=== PATIENT | female | born 1985 | race Caucasian/White ===

== ENCOUNTER 2016-10-01 21:59 | Emergency (ER) | payer OTHER ==
[2016-10-01] MEDS ORDERED: NITROFURANTOIN 100 MG CAPSULE PO ONE (23:56)
--- NOTE | 2016-10-02 | ED Physician Documentation ---
General Adult - HISTORIAN Historian: patient, spouse - HPI Stated Complaint: vaginal discharge Chief Complaint: General Adult Additional Information: 4 days vulvar itching and vag discharge. Has used monistat two days w/o relief. Denies dysuria, frequency. 36-37 weeks , . Has OB appointment on . Recent diagnosis BV in June. Has had UTI's in the past as well. No vag bleeding. Occasional uterine contraction. - ROS CONST: denies: fever GI/: denies: problems urinating - PAST HX Past History: none Allergies/Adverse Reactions: Allergies Allergy/AdvReac Type Severity Reaction Status Date / Time hydrocodone bitartrate AdvReac Intermediate Nausea/Vomi Verified 10/01/16 23:48 [From [place]] ting promethazine HCl AdvReac Intermediate Tremors Verified 10/01/16 23:48 [From Phenergan] Home Medications: Ambulatory Orders Medication Instructions Recorded Sertraline HCl [Zoloft] 25 mg PO DAILY 07/22/15 Pnv95/Ferrous Fumarate/FA 1 each PO DAILY 07/03/16 [ Caplet] Nitrofurantoin Monohyd/M-Cryst 100 mg PO CMEAL #14 capsule 10/01/16 [Macrobid] Metronidazole 500 mg PO Q12H #14 tablet 10/02/16 - SOCIAL HX Smoking History: cigarettes - FAMILY HX Family History: No - VITAL SIGNS Vital Signs: Vital Signs Temp Pulse Resp BP Pulse Ox 97.7 F 98 H 18 114/58 98 10/01/16 23:35 10/01/16 23:35 10/01/16 23:35 10/01/16 23:35 10/01/16 23:35 - REVIEWED ASSESSMENTS Nursing Assessment Reviewed: Yes Vitals Reviewed: Yes Progress - Progress Progress: Will treat for BV, confirmed UTI today. Will test for chlamydia and gonorrhea and if needed treat for those at a later date .She has OB appointment on 10/04. ED Results Lab/Radiology - Orders Orders: ED Orders Category Date Time Status Nitrofurantoin Monohyd/M-Cryst [Macrobid] Med 10/01/16 23:56 Once 100 mg PO NOW ONE General Adult Physical Exam - PHYSICAL EXAM GENERAL APPEARANCE: no distress EENT: eye inspection normal, ENT inspection normal (poor dentition) NECK: normal inspection RESPIRATORY: no resp distress CVS: reg rate & rhythm, heart sounds normal, no murmur, other (FHT's 132) ABDOMEN: soft, normal bowel sounds, non-tender (gravid) RECTAL: deferred BACK: normal inspection SKIN: warm/dry, normal color EXTREMITIES: normal range of motion (gait), no evidence of injury NEURO: CN's nml as tested, motor nml, sensation nml, cognition normal Discharge Clincal Impression: UTI (urinary tract infection) Qualifiers: Urinary tract infection type: acute cystitis Hematuria presence: with hematuria Qualified Code(s): N30.01 - Acute cystitis with hematuria Prescriptions: Metronidazole 500 mg PO Q12H #14 tablet Nitrofurantoin Monohyd/M-Cryst [Macrobid] 100 mg PO CMEAL #14 capsule Additional Instructions: Keep your OB appointment on . Home Medications: Ambulatory Orders Sertraline HCl [Zoloft] 25 mg PO DAILY 07/22/15 Pnv95/Ferrous Fumarate/FA [ Caplet] 1 each PO DAILY 07/03/16 Nitrofurantoin Monohyd/M-Cryst [Macrobid] 100 mg PO CMEAL #14 capsule 10/01/16 Metronidazole 500 mg PO Q12H #14 tablet 10/02/16 Condition: Good Disposition: 01 HOME, SELF-CARE Decision to Admit: NO Decision Time: 00:20
[2016-10-02] MEDS ORDERED: metroNIDAZOLE 500 MG TABLET PO ONE (00:08)
[2016-10-02 00:48] VITALS: BP 118/59
[2016-10-02 05:39] LABS: APPEARANCE,URINE CLOUDY (CLEAR); COLOR,URINE YELLOW (YELLOW); OCCULT BLOOD,URINE TRACE-INTACT (NEGATIVE); UROBILINOGEN URINE 0.2 Eu (0.2-1.0)
== END 2016-10-02 00:35 | disposition home or self-care (01) ==
LOC: ED 21:59
DX: N30.01 Acute cystitis with hematuria (principal)
CPT/HCPCS: 81002; 87088; 87801; 99283